=== PATIENT | female | born 1980 | race Caucasian/White ===

== ENCOUNTER 2016-05-19 13:14 | Emergency (ER) | payer OTHER ==
[~2016-05-19] VITALS: Ht 162.6 cm; Wt 73.6 kg
[2016-05-19 13:30] VITALS: BP 134/92; PULSE 71; RESP 16; O2SAT 96
[2016-05-19 14:20] LABS: APPEARANCE,URINE HAZY (CLEAR,HAZY); COLOR,URINE YELLOW (YELLOW); OCCULT BLOOD,URINE TRACE (NEGATIVE)
[2016-05-19 14:21] LABS: UROBILINOGEN,URINE NORMAL (NORMAL)
--- NOTE | 2016-05-19 14:50 | ED.REPORT ---
HPI-Abd Pain F Under 41 Date of Service May 19, 2016 ED Provider: Autumn Carrington History of Present Illness: pressure lower abd area, had a stool movement which had some decrease in pressure but painful now. feels like labor. pain has decreased some. mild nausea. primary care is [facility]. normally healthy. fine yesterday 9.5/10 at its worst, now 1.5/10 reporting vaginal discharge for 2 to 3 months Nursing Notes Stated Complaint: ABDOMINAL PAIN Chief Complaint: Female Abdominal Pain Nursing Notes Reviewed: Yes Allergies: Coded Allergies: wheat (Verified Allergy, Severe, gi issues, 05/19/16) hydrocodone (Verified Adverse Reaction, Severe, vomitting, 05/19/16) General Time Seen by MD: 13:43 Chief Complaint Abdominal pain Hx Obtained From: Patient Sudden in Onset?: No Symptom Duration: 1 - 4 hours Progression since Onset: Rapidly improving Location: : Lower-adnexal region dianna Past Medical History Past Medical History Reports: Asthma (inhaler helps, last use was 4 days ago) Past Surgical History Reports: Cholecystectomy Smoking History Current Every Day Smoker (1/3 pack a day for 20 years) Social History Alcohol Use: "Social" Drug Use: Denies drug use Occupation living at [facility], work at [employer] 05/19/2016 Ambulatory Status Independent Review of Systems Basic Review of Systems Eyes: Vision NL Hematologic: No bleeding, No bruising Psychiatric: Normal thought content Physical Exam Initial Vital Signs Vital Signs (First) Date Time Temp Pulse Resp B/P Pulse Ox O2 Delivery O2 Flow Rate FiO2 05/19/16 13:30 36.2 71 16 134/92 96 Room Air Initial VS: Reviewed, Vital signs normal Head / Eyes: Atraumatic, Normocephalic, PERRL ENT: Mucous membranes moist, Conjunctiva normal, No scleral icterus Neck: Supple, Non-tender, Full range of motion Lymphatic: No lymphadenopathy Extremities: Vascular intact, Neuro intact, No swelling, No tenderness Skin: Warm, Dry, No cyanosis Neurologic: Alert, Oriented, Nonfocal Psychiatric: Mood/affect normal, Behavior normal, Normal thought content General/Constitutional: Awake, Alert, No acute distress, Well appearing, Well developed, Well hydrated, Well nourished, Cooperative, Not toxic appearing Respiratory / Chest: Atraumatic, Breath sounds NL, Breath sounds = bilat, No respiratory distress Cardiovascular: Heart rate NL, Regular rhythm, Heart sounds NL, No gallop Abdomen: Atraumatic, Soft, Non-tender, McBurney's non-tender Back: Atraumatic, Inspection NL, Full range of motion, Painless range of motion Female Genitourinary: Creative Engagement Director present, External genitalia NL Vaginal Bleeding / Discharge: Positive: Discharge copious, Discharge white external genitilia normal. Moderate amount whitish juárez discharge, positive CMT, mild uterine tenderness to palpation. no bleeding Interpretation & Diagnostics Interpretation & Diagnostics: INDICATIONS: ?pid ? abscess TECHNIQUE: Real-time scanning was performed of the pelvic organs, with image documentation. Additional endovaginal scanning was necessary due to incomplete visualization of the adnexal and endometrial structures by transabdominal scanning. COMPARISON: None. FINDINGS: Transabdominal scanning: Limited scanning through the kidneys shows no hydronephrosis. No pathologic free abdominal or pelvic fluid. Endovaginal scanning: Uterus: Uterus is enlarged in size and measures 10.2 x 4.4 x 5.8 cm. The endometrium measures 3 mm in combined thickness. Ovaries: The right ovary is normal and measures 25 x 21 x 22 mm. The left ovary is prominent in size measuring 36 x 48 x 37 mm. This is because of a simple cyst that measures 30 x 28 x 24 mm. Miscellaneous: No free fluid is seen. IMPRESSION: 1. Prominent size uterus but no abnormality of it is otherwise seen. 2. Endometrial echo is normal. 3. 3 cm in greatest dimension simple cyst in the left ovary. 4. Cause pelvic pain and abnormal discharge is not identified. Dictated by: Geovani Lee M.D. on 05/19/2016 at 17:32 Lab Results Interpretation Result Diagram: 05/19/16 1535 05/19/16 1535 Test 05/19/16 13:31 05/19/16 15:35 05/19/16 17:20 Urine Color Yellow (YELLOW) Urine Appearance Hazy (CLEAR,HAZY) Urine pH 6.0 (5.0-8.0) Urine Specific [place] 1.020 (1.003-1.035) Urine Protein Negativemg/dL (NEG,TRACE) Urine Glucose (UA) Negativemg/dL (NEGATIVE) Urine Ketones Negativemg/dL (NEGATIVE) Urine Occult Blood Trace (NEGATIVE) Urine Nitrite Negative (NEGATIVE) Urine Bilirubin Negative (NEGATIVE) Urine Urobilinogen Normalmg/dL (NORMAL) Urine Leukocyte Esterase Small (NEGATIVE) Urine RBC 3-10/hpf (0-2) Urine WBC 6-10/hpf (0-5) Urine Epithelial Cells Occasional/hpf (NONE-MOD) Urine Crystals None seen (NONE SEEN) Urine Bacteria Few/hpf (NONE-FEW) Urine Hyaline Casts None/lpf (NONE) Urine Granular Casts None seen (NONE SEEN) Urine Waxy Casts None seen (NONE SEEN) Urine Red Blood Cell Casts None seen (NONE SEEN) Urine White Blood Cell Casts None seen (NONE SEEN) Urine Mucus None seen (None Seen) Urine Trichomonas Present (NONE SEEN) Urine Yeast None (NONE SEEN) Urinalysis Comment None Urine Culture Reflexed Indicated White Blood Count 7.6th/mm3 (3.8-10.1) Red Blood Count 4.32mil/mm3 (3.90-5.20) Hemoglobin 13.5g/dL (12.0-15.6) Hematocrit 40.3% (35.0-46.0) Mean Corpuscular Volume 93.3fL (81-100) Mean Corpuscular Hemoglobin 31.3pg (27.0-35.0) Mean Corpuscular Hemoglobin Concent 33.5% (32.0-37.0) Red Cell Distribution Width 12.1% (12.3-15.4) Platelet Count 290bil/L (150-400) Neutrophils (%) (Auto) 75.4% (40-74) Lymphocytes (%) (Auto) 16.9% (14-46) Monocytes (%) (Auto) 5.6% (4-12) Eosinophils (%) (Auto) 1.7% (0-5) Basophils (%) (Auto) 0.3% (0-3) Sodium Level 140mEq/L (134-144) Potassium Level 3.9mEq/L (3.5-5.2) Chloride Level 103mEq/L (97-108) Carbon Dioxide Level 25mmol/L (18-29) Blood Urea Nitrogen 9mg/dL (6-20) Creatinine 0.62mg/dL (0.57-1.00) Estimat Glomerular Filtration Rate 158mL/min (>59) Glucose Level 110mg/dL (60-99) Calcium Level 8.7mg/dL (8.5-10.1) Magnesium Level 2.1mg/dL (1.6-2.6) Total Bilirubin 0.2mg/dL (0.0-1.2) Aspartate Amino Transf (AST/SGOT) 11U/L (0-50) Alanine Aminotransferase (ALT/SGPT) 9U/L (0-32) Alkaline Phosphatase 39U/L (25-150) Total Protein 6.6g/dL (6.4-8.4) Albumin 3.9g/dL (3.4-5.0) Lipase 26U/L (13-60) Hold [place] Top Tube Received (Received) Hold Urine Received (Received) Lab Results Interpretation: urine shows trichomoniasis, GC. CL pending, wet mount positive trichomoniasis and many clue cells X-Ray Interpretation Xray Interpretation: TECHNIQUE: One view of the abdomen acquired. COMPARISON: None. FINDINGS: Surgical changes and devices: Cholecystectomy clips. Bowel: Bowel gas pattern is normal. Soft tissues: No suspicious abdominal calcifications. Visualized solid organ contours appear normal in size. Bones: No suspicious bony lesions. IMPRESSION: Normal bowel gas pattern. Re-Eval/Medical Decision Med Decision/Clinical Course Med Decision/Clinical Course: 35 year old female presents with lower abd pain. Pain has decreased some since arriving at ER. Urine indicates trichomoniasis. Exam is consistent with pelvic inflammatory disease, no sign of tubo-ovarian abscess, or ruptured ectopic or ischemia bowel. Patient treated with IV flagy 500 mg, also provided rocephin 250 mg IM, azithromycin 1000 mg PO, and Doxycycline 100 mg BID times 14 days. Patient reporting pain almost completely resolved. GC. CL pending but treated for them Discharge & Departure Primary Impression: Trichomoniasis Additional Impression: Pelvic inflammatory disease Disposition: Home Patient Instructions: Pelvic Inflammatory Disease (ED), Sexually Transmitted Diseases (ED), Trichomoniasis (ED) Additional Instructions: Your labs are looking good. The ultrasound does show a cyst on the left ovary. You will need a repeat ultrasound in 4 to 6 weeks to make sure the cyst has resolved. The urine indicates trichomoniasis. The exam also bears this out. There is a moderate amount of discharge. The treatment for this is flagyl. You have received the first dose IV and will be provided a prescription for pills. You are also being treated for all sexually transmitted infections. The azithromycin pills and the rocephin (injection) are used to treat those. You are also being started on doxycycline for pelvic inflammatory disease. Please take all medications as directed. If any of the tests come back positive, we will contact you for partner treatment. Referrals: Donovan Root DO (PCP) EDSupervising Provider for APC: Donovan Root DO copies to: Donovan Root Sue ARNP May 19, 2016 14:49
--- NOTE | 2016-05-19 15:09 | DRSVH ---
PROCEDURE: X-RAY KUB ([id number]) INDICATIONS: ABDOMEN PRESSURE TECHNIQUE: One view of the abdomen acquired. COMPARISON: None. FINDINGS: Surgical changes and devices: Cholecystectomy clips. Bowel: Bowel gas pattern is normal. Soft tissues: No suspicious abdominal calcifications. Visualized solid organ contours appear normal in size. Bones: No suspicious bony lesions. IMPRESSION: Normal bowel gas pattern. Dictated by: Tony ARREDONDO Interpreted: Graham Valverde MD on 05/19/2016 at 15:09 Transcribed by: [email or web address] on 05/19/2016 at 15:09 Approved by: Graham Valverde M.D. on 05/19/2016 at 16:21
[2016-05-19 15:50] LABS: BASOPHILS % (AUTO) 0.3 % (0-3); EOSINOPHILS % (AUTO) 1.7 % (0-5); MONOCYTES % (AUTO) 5.6 % (4-12); Mean Corpuscular Hemoglobin 31.3 pg (27.0-35.0); Mean Corpuscular Volume 93.3 fL (81-100); NEUTROPHILS % (AUTO) 75.4 % (40-74); Platelet Count 290 bil/L (150-400)
[2016-05-19] MEDS ORDERED: cefTRIAXone Inj 250 MG, Lidocaine PF 1% Inj 0.9 ML in Syringe 1 EACH IM ONE (16:05)
[2016-05-19] MEDS ORDERED: metroNIDAZOLE Inj 500 MG in IV Premix 1 EACH IV ONE (16:05)
[2016-05-19 16:10] LABS: Magnesium 2.1 mg/dL (1.6-2.6)
--- NOTE | 2016-05-19 17:36 | DRSVH ---
PROCEDURE: US PELVIC SONOGRAM + TRANSVAGINAL SONOGRAM INDICATIONS: ?pid ? abscess TECHNIQUE: Real-time scanning was performed of the pelvic organs, with image documentation. Additional endovagi nal scanning was necessary due to incomplete visualization of the adnexal and endometrial structures by transabdominal scanning. COMPARISON: None. FINDINGS: Transabdominal scanning: Limited scanning through the kidneys shows no hydronephrosis. No pathologi c free abdominal or pelvic fluid. Endovaginal scanning: Uterus: Uterus is enlarged in size and measures 10.2 x 4.4 x 5.8 cm. The endometrium measures 3 mm i n combined thickness. Ovaries: The right ovary is normal and measures 25 x 21 x 22 mm. The left ovary is prominent in size measuring 36 x 48 x 37 mm. This is because of a simple cyst that measures 30 x 28 x 24 mm. Miscellaneous: No free fluid is seen. IMPRESSION: 1. Prominent size uterus but no abnormality of it is otherwise seen. 2. Endometrial echo is normal. 3. 3 cm in greatest dimension simple cyst in the left ovary. 4. Cause pelvic pain and abnormal discharge is not identified. Dictated by: Geovani Lee M.D. on 05/19/2016 at 17:32 Approved by: Geovani Lee M.D. on 05/19/2016 at 17:34
== END 2016-05-19 18:53 | disposition home or self-care (01) ==
LOC: SED 13:14
DX: A59.9 Trichomoniasis, unspecified (principal); N73.9 Female pelvic inflammatory disease, unspecified; J45.909 Unspecified asthma, uncomplicated; F17.200 Nicotine dependence, unspecified, uncomplicated; Z90.49 Acquired absence of other specified parts of digestive tract; Z88.5 Allergy status to narcotic agent
CPT/HCPCS: 36415; 74000; 76830; 76856; 80053; 81000; 81025; 83690; 83735; 85025; 87086; 87088; 87210; 87491; 87591; 96365; 96372; 99285; J0696; J3490